=== PATIENT | male | born 1945 | race Two or more races ===

== ENCOUNTER 2021-12-21 11:13 | Inpatient (IN) | payer MEDICARE, OTHER ==
[~2021-12-21] VITALS: Ht 180.3 cm; Wt 91.3 kg
[2021-12-21 12:05] LABS: Basophils # (auto) 0 10 ^3/uL (0-0.2); Basophils % (auto) 0.8 % (0.0-2.0); Eosinophils # (auto) 0.1 10 ^3/uL (0-0.8); Monocytes # (auto) 0.5 10 ^3/uL (0-1.3); Nucleated Red Blood Cells % 0.1 %
[2021-12-21 12:08] LABS: Eosinophils % (auto) 1.6 % (0.0-7.0); Hematocrit 41.4 % (41.0-53.0); Hemoglobin 13.2 g/dL (13.5-17.5); Lymphocytes # (auto) 1.3 10 ^3/uL (0.4-5.4); Lymphocytes % (auto) 22.4 % (10.0-50.0); Mean Corpuscular Hemoglobin 26.8 pg (28.0-32.0); Mean Corpuscular Hgb Conc. 31.9 g/dL (32.0-36.0); Mean Corpuscular Volume 83.9 fL (80.0-100.0); Monocytes % (auto) 9.2 % (0.0-12.0); Neutrophils # (auto) 3.9 10 ^3/uL (1.6-8.6); Red Blood Cells 4.93 10^6/uL (4.5-5.90); Red Cell Distribution Width 16.1 % (11.8-14.3); White Blood Cell 5.9 10^3/uL (4.4-10.8)
[2021-12-21 12:14] LABS: Albumin 4.1 g/dL (3.4-5.0); Calcium 8.3 mg/dL (8.5-10.1); Magnesium 2.2 mg/dL (1.6-2.6)
[2021-12-21 12:19] LABS: BUN/Creatinine Ratio 10.2; Bilirubin, Total 0.3 mg/dL (0.2-1.0); Total Protein 7.4 g/dL (6.4-8.2)
[2021-12-21] MEDS ORDERED: MORPHINE SULFATE INJ 2 MG/ml SYRG IV PRN (14:30)
[2021-12-21] MEDS ORDERED: NITROGLYCERIN 0.4 MG SL TAB SL PRN (14:30)
[2021-12-21] MEDS ORDERED: MET25T PO (14:37)
[2021-12-21] MEDS ORDERED: ATOR40TA52 PO (14:37)
[2021-12-21] MEDS ORDERED: SODIUM CHLORIDE 0.9% 500 ML IV ONE (14:45)
[2021-12-21 15:07] LABS: Cholesterol 93 mg/dL (< 200)
[2021-12-21 15:10] LABS: HDL Cholesterol 28 mg/dL (40-59); LDL Cholesterol 44 mg/dL (< 100); Triglycerides 230 mg/dL (< 150)
[2021-12-21 15:30] LABS: Urine Bacteria NONE SEEN /hpf (None Seen); Urine Blood Negative /uL (Negative); Urine Specific Gravity 1.019 (1.001-1.035); Urine WBC <1 /hpf (0 - 3)
[2021-12-21] MEDS: SODIUM CHLORIDE 0.9% 1,000 ML IV SCH (21:00)
[2021-12-22] VITALS: BP 164/68
[2021-12-22] MEDS: SODIUM CHLORIDE 0.9% 1,000 ML IV SCH ×2 (04:05→17:31)
[2021-12-22 05:00] VITALS: BP 145/65
[2021-12-22 07:11] LABS: Basophils # (auto) 0 10 ^3/uL (0-0.2); Basophils % (auto) 0.6 % (0.0-2.0); Eosinophils # (auto) 0.1 10 ^3/uL (0-0.8); Eosinophils % (auto) 1.5 % (0.0-7.0); Hematocrit 38.6 % (41.0-53.0); Hemoglobin 12.7 g/dL (13.5-17.5); Lymphocytes # (auto) 1.2 10 ^3/uL (0.4-5.4); Lymphocytes % (auto) 19.4 % (10.0-50.0); Mean Corpuscular Hemoglobin 27.5 pg (28.0-32.0); Mean Corpuscular Hgb Conc. 33.1 g/dL (32.0-36.0); Mean Corpuscular Volume 83.2 fL (80.0-100.0); Monocytes # (auto) 0.5 10 ^3/uL (0-1.3); Monocytes % (auto) 7.6 % (0.0-12.0); Neutrophils # (auto) 4.2 10 ^3/uL (1.6-8.6); Neutrophils % (auto) 70.9 % (37.0-80.0); Nucleated Red Blood Cells % 0.1 %; Red Blood Cells 4.64 10^6/uL (4.5-5.90)
[2021-12-22 07:25] LABS: Potassium 4.7 mmol/L (3.5-5.1)
[2021-12-22 07:35] LABS: Albumin 3.6 g/dL (3.4-5.0); BUN/Creatinine Ratio 13.4; Bilirubin, Total 0.5 mg/dL (0.2-1.0); Calcium 7.9 mg/dL (8.5-10.1); Total Protein 6.5 g/dL (6.4-8.2)
[2021-12-22 08:00] VITALS: BP 143/69
[2021-12-22] MEDS: ENOXAPARIN SOD 40 MG/0.4 ML SYRINGE SC SCH (09:19)
[2021-12-22 13:00] VITALS: BP 147/68
[2021-12-22 16:54] VITALS: BP 122/67
[2021-12-22] MEDS ORDERED: ACETAMINOPHEN 325 MG TAB PO PRN (17:45)
[2021-12-22] MEDS: METOPROLOL TARTRATE 50 MG TAB PO SCH (21:07)
[2021-12-22] MEDS ORDERED: ALUM & MAG HYDROX-SIMETH LIQ(MAALOX) 30 ML PO PRN (21:15)
[2021-12-22 22:00] VITALS: BP 154/85
[2021-12-23] VITALS (13 sets, daily range): BP systolic 108–165; BP diastolic 64–79
[2021-12-23] MEDS: SODIUM CHLORIDE 0.9% 1,000 ML IV SCH ×2 (02:03→20:12)
[2021-12-23] MEDS: ENOXAPARIN SOD 40 MG/0.4 ML SYRINGE SC SCH (10:00)
[2021-12-23] MEDS: METOPROLOL TARTRATE 50 MG TAB PO SCH ×2 (10:13→22:23)
[2021-12-23] MEDS ORDERED: IODIXANOL 320MG/ML 100ML BTL IV ONE (12:22)
[2021-12-23] MEDS ORDERED: LIDOCAINE 2%HCL (LOCAL ANESTH.) INJ 20ML MDV ONE (12:23)
[2021-12-23] MEDS ORDERED: ANGIOMAX 250 MG VIAL IV ONE (12:38)
[2021-12-23] MEDS ORDERED: ATROPINE SULF 1 MG/10ml SYR ONE (12:38)
[2021-12-23] MEDS ORDERED: GLYCOPYRROLATE 0.2 MG/ML 1ML VIAL ONE (12:39)
[2021-12-23] MEDS ORDERED: SODIUM CHL 0.9% 0 ML ONE (12:39)
[2021-12-23] MEDS ORDERED: PHENYLEPHRINE HCL 10 MG/ML VL ONE (12:39)
[2021-12-23] MEDS ORDERED: EPINEPHrine HCL 1 MG/10 ML SYRG ONE (12:39)
[2021-12-23] MEDS ORDERED: IOHEXOL 350 MG/ML 100ML IJ ONE (12:45)
[2021-12-23] MEDS: SODIUM CHLOR 0.9% PF (SALINE LOCK) 10ML VIAL/SYR IV SCH ×2 (14:00→22:22)
[2021-12-23] MEDS ORDERED: ASPI325T4 PO (15:08)
[2021-12-23] MEDS ORDERED: SITA50TA PO (15:08)
[2021-12-23] MEDS ORDERED: CHOL20004 PO (15:08)
[2021-12-23] MEDS ORDERED: EZET10TA22 PO (15:08)
[2021-12-23] MEDS ORDERED: LISI20TA28 PO (15:08)
[2021-12-23] MEDS ORDERED: FENO145T27 PO (15:08)
[2021-12-23] MEDS ORDERED: EMPA1TAB3 PO (15:08)
[2021-12-23] MEDS ORDERED: METF-372 PO (15:08)
[2021-12-23] MEDS ORDERED: FAMO20TA10 PO (15:08)
[2021-12-23] MEDS ORDERED: GLIP10TA9 PO (15:08)
[2021-12-23] MEDS ORDERED: cloNIDine HCL 0.1 MG TAB PO PRN (16:45)
[2021-12-23] MEDS ORDERED: LISINOPRIL 20 MG TAB PO ONE (16:45)
[2021-12-23] MEDS ORDERED: LORazepam 2MG/ML-1ML VIAL IV ONE (16:45)
[2021-12-24] VITALS (7 sets, daily range): BP systolic 124–145; BP diastolic 56–78
[2021-12-24] MEDS: SODIUM CHLOR 0.9% PF (SALINE LOCK) 10ML VIAL/SYR IV SCH ×3 (05:40→22:00)
[2021-12-24] MEDS: ENOXAPARIN SOD 40 MG/0.4 ML SYRINGE SC SCH (10:15)
[2021-12-24] MEDS: LISINOPRIL 20 MG TAB PO SCH (10:15)
[2021-12-24] MEDS: METOPROLOL TARTRATE 50 MG TAB PO SCH ×3 (10:16→23:00)
[2021-12-24] MEDS: SODIUM CHLORIDE 0.9% 1,000 ML IV SCH ×2 (10:16→22:45)
[2021-12-24] MEDS ORDERED: LORazepam 2MG/ML-1ML VIAL IV ONE (12:00)
[2021-12-25 05:07] VITALS: BP 127/85
[2021-12-25] MEDS: SODIUM CHLOR 0.9% PF (SALINE LOCK) 10ML VIAL/SYR IV SCH ×2 (06:18→14:00)
[2021-12-25 08:02] VITALS: BP 127/85
[2021-12-25 09:20] VITALS: BP 152/65
[2021-12-25] MEDS: LISINOPRIL 20 MG TAB PO SCH (09:55)
[2021-12-25] MEDS: ENOXAPARIN SOD 40 MG/0.4 ML SYRINGE SC SCH (09:55)
[2021-12-25] MEDS: SODIUM CHLORIDE 0.9% 1,000 ML IV SCH (12:26)
[2021-12-25 13:32] VITALS: BP 152/65
== END 2021-12-25 14:40 | disposition home health service (06) | DRG 312 ==
LOC: ER 11:13 → TELE 14:31 → TELE-WESTW 23:22
PROVIDERS: ADMIT Registered Nurse; ATTEND Family Medicine
PROC: B3181ZZ Fluoroscopy of Bilateral Internal Carotid Arteries using Low Osmolar Contrast (ICD-10-PCS; principal; 2021-12-24)
DX: R55 Syncope and collapse (principal); N17.9 Acute kidney failure, unspecified; I65.21 Occlusion and stenosis of right carotid artery; R00.1 Bradycardia, unspecified; E11.22 Type 2 diabetes mellitus with diabetic chronic kidney disease; N18.32 Chronic kidney disease, stage 3b; E11.40 Type 2 diabetes mellitus with diabetic neuropathy, unspecified; E78.00 Pure hypercholesterolemia, unspecified; E86.0 Dehydration; Z20.822 Contact with and (suspected) exposure to COVID-19; R42 Dizziness and giddiness; I12.9 Hypertensive chronic kidney disease with stage 1 through stage 4 chronic kidney disease, or unspecified chronic kidney disease; Z85.51 Personal history of malignant neoplasm of bladder; Z86.16 Personal history of COVID-19; Z86.73 Personal history of transient ischemic attack (TIA), and cerebral infarction without residual deficits; Z87.01 Personal history of pneumonia (recurrent)
CPT/HCPCS: 36223; 36415; 70450; 70551; 71045; 72125; 80053; 80061; 81001; 82550; 83036; 83735; 83880; 84484; 85025; 85379; 93005; 93306; 93886; 95819; 96360; 99152; G0378; Q9967

== ENCOUNTER → 2022-01-19 | Outpatient (CLI) | payer MEDICARE, MEDICAID ==
[~2022-01-19] MED LIST: ASPI325T4 PO; ATOR40TA52 PO; CHOL20004 PO; EMPA1TAB3 PO; EZET10TA22 PO; FAMO20TA10 PO; FENO145T27 PO; GLIP10TA9 PO; LISI20TA28 PO; MET25T PO; METF-372 PO; SITA50TA PO
== END | disposition home or self-care (01) ==
LOC: Rad HDHVI 12:59 → EDBD 12:59
PROVIDERS: ATTEND Internal Medicine Cardiovascular Disease
DX: I65.22 Occlusion and stenosis of left carotid artery (principal); E78.5 Hyperlipidemia, unspecified
CPT/HCPCS: 93880

== ENCOUNTER → 2022-01-24 | Outpatient (CLI) | payer MEDICARE, MEDICAID ==
[~2022-01-24] VITALS: Ht 182.9 cm; Wt 91.2 kg
[~2022-01-24] MED LIST changes: +ADENOSINE 77 MG in GIVE UN-DILUTED 0 ML IV ONE; +ADENOSINE 90 MG/30 ML INJ IV ONE
== END | disposition home or self-care (01) ==
LOC: Rad HDHVI 12:57
PROVIDERS: ATTEND Internal Medicine Cardiovascular Disease
DX: R06.02 Shortness of breath (principal); I10 Essential (primary) hypertension; I99.9 Unspecified disorder of circulatory system; E11.40 Type 2 diabetes mellitus with diabetic neuropathy, unspecified; E78.5 Hyperlipidemia, unspecified; E11.21 Type 2 diabetes mellitus with diabetic nephropathy; R42 Dizziness and giddiness; R55 Syncope and collapse; E11.65 Type 2 diabetes mellitus with hyperglycemia
CPT/HCPCS: 78452; 93005; 96374; 96375; A9500; J0153